=== PATIENT | male | born 1955 | race Caucasian/White ===

== ENCOUNTER → 2017-02-27 17:08 | Outpatient (CLI) | payer OTHER, SELFPAY ==
[2017-02-27 20:46] LABS: Prostate Specific Ag, Diagnost 6.05 ng/mL (0.0-4.0)
== END ==
PROVIDERS: PCP Family Medicine; Visit Provider Urology
DX: R97.20 Elevated prostate specific antigen [PSA] (principal); Z12.5 Encounter for screening for malignant neoplasm of prostate
CPT/HCPCS: 36415; 84153

== ENCOUNTER → 2017-03-18 10:52 | Outpatient (CLI) | payer OTHER, SELFPAY ==
[2017-03-18 12:44] LABS: Blood Urea Nitrogen 13 mg/dL (7-18); Creatinine,Serum 1.25 mg/dL (0.70-1.30); Estimated Glomerular Filt Rate 59 ml/min (>60); GFR (African American) 72 ML/MIN (>60)
== END ==
PROVIDERS: PCP Family Medicine; Visit Provider Family Medicine
DX: R39.89 Other symptoms and signs involving the genitourinary system (principal)
CPT/HCPCS: 36415; 82565; 84520

== ENCOUNTER → 2017-03-20 14:19 | Outpatient (CLI) | payer OTHER, SELFPAY ==
--- NOTE | 2017-03-20 14:36 | CT_ITS ---
CT chest wo con HISTORY: Left-sided lymphadenopathy, lung nodule, solitary pulmonary nodule ITS.REASON: PULMONARY NODULE ORDERING PHYSICIAN: Belle Rodríguez MD PATIENT AGE: 61 years TECHNIQUE: Axial images obtained. Sagittal and coronal reformatted images are also generated and reviewed. CONTRAST: None COMPARISON: None FINDINGS: No mediastinal or hilar mass or adenopathy is evident. Coronary artery calcifications are present. Normal heart size without evidence of pericardial effusion. There are stable bilateral noncalcified pulmonary nodules including a 5 mm nodule in the right upper lobe, 4 mm nodule in the right middle lobe, and 6 mm nodule in the lingula. No new nodules evident. There is a calcified granuloma in the right lung base. There are no effusions or infiltrates. No acute bony anomalies. Upper abdominal images are unremarkable. Small nodes are present in the axilla but no obvious adenopathy. IMPRESSION: 1. Stable bilateral pulmonary nodules. Consider 1 year follow-up. 2. No acute finding
--- NOTE | 2017-03-20 14:37 | CT_ITS ---
CT soft tissue neck w con INDICATION: Left-sided lymphadenopathy ITS.REASON: LYMPHADENOPATHY LT NECK ORDERING PHYSICIAN: Belle Rodríguez MD PATIENT AGE: 61 years COMPARISON: None TECHNIQUE: Axial images are obtained with 75 mL Isovue-370 contrast. Sagittal and coronal reformatted images are reviewed as well. FINDINGS: The nasopharynx has an unremarkable appearance. A BB is placed along the palpable abnormality in the left neck region. Deep to this area is an region of fat density within the posterior aspect of the left parotid gland which measures 17 x 13 mm consistent with a lipoma. There are scattered small lymph nodes in the neck but no dominant adenopathy. No abscess or abnormal fluid collection is evident. Upper thoracic images show no evidence of mediastinal adenopathy. No acute bony anomalies. Mild facet arthritic changes are present in the cervical spine. IMPRESSION: 1. No evidence of adenopathy. 2. 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
== END ==
PROVIDERS: Family Provider Family Medicine; PCP Family Medicine; Visit Provider Family Medicine
DX: R91.8 Other nonspecific abnormal finding of lung field (principal); R59.0 Localized enlarged lymph nodes
CPT/HCPCS: 70491; 71250; Q9967

== ENCOUNTER → 2017-06-09 17:19 | Outpatient (CLI) | payer OTHER, SELFPAY ==
[2017-06-09 18:06] LABS: Prostate Specific Ag Screen 7.2 ng/mL (0.0-4.0)
== END ==
PROVIDERS: Visit Provider Urology
DX: R97.20 Elevated prostate specific antigen [PSA] (principal)
CPT/HCPCS: 36415; G0103

== ENCOUNTER → 2018-09-28 17:01 | Outpatient (CLI) | payer BC, SELFPAY ==
[2018-09-30 17:19] LABS: PSA, Free 1.21 ng/mL; Prostate Specific Ag 7.9 ng/mL (0.0-4.0)
== END ==
PROVIDERS: Visit Provider Urology
DX: R97.20 Elevated prostate specific antigen [PSA] (principal)
CPT/HCPCS: 36415; 84153; 84154; G0103

== ENCOUNTER → 2018-11-05 17:11 | Outpatient (CLI) | payer BC, SELFPAY ==
[2018-11-07 16:44] LABS: PSA, Free 1.71 ng/mL; Prostate Specific Ag 7.7 ng/mL (0.0-4.0)
== END ==
PROVIDERS: Visit Provider Urology
DX: Z12.5 Encounter for screening for malignant neoplasm of prostate (principal); N40.0 Benign prostatic hyperplasia without lower urinary tract symptoms
CPT/HCPCS: 36415; 84153; 84154; G0103

== ENCOUNTER 2019-12-18 10:57 | Emergency (ER) | payer OTHER, SELFPAY ==
[2019-12-18 11:14] VITALS: BP 172/100; PULSE 62; RESP 16; TEMP 36.5; O2SAT 97; BMI 35.9
--- NOTE | 2019-12-18 11:17 | CT_ITS ---
PROCEDURE: CT ABDOMEN PELVIS WO CON CLINICAL INDICATION: right flank pain COMPARISON: CT ABDPELW/O CT ABD PELVIS W/O CONTRAST from 12/24/2016 TECHNIQUE: Axial images obtained with sagittal and coronal reformats. All CT scans at the facility use one or more dose reduction, viz: automated exposure control, ma/kV adjustment per patient size (including targeted exams where dose is matched to indication, i.e. head), or iterative reconstruction technique. FINDINGS: There is a stable 4 mm nodule in the right middle lobe. Coronary artery calcifications are present. Liver has an unremarkable appearance. There is mild splenomegaly at 15 cm. The adrenal glands and pancreas have an unremarkable appearance. The left kidney is unremarkable. There is a 2 mm stone at the right ureterovesical junction with mild right-sided hydronephrosis and hydroureter with mild stranding of the right perinephric and periureteral fat. There is a small umbilical hernia which contains fat. The prostate is enlarged at 7 cm. No intestinal obstruction or free air. There has been a prior appendectomy. There are mild degenerative changes of the spine and hips. IMPRESSION: Mild right hydronephrosis and hydroureter secondary to a 2 mm stone at the right ureterovesical junction with mild stranding of the right perinephric and periureteral fat. Other nonacute findings as described above the Dictated by: Newton Groves MD 12/18/2019 18:47 Newton Groves MD in [place] 12/18/2019 18:47
[2019-12-18 11:23] LABS: Microscopic, Urine URINE MICROSCOPIC (MICROSCOPIC)
[2019-12-18 11:25] LABS: Appearance,Urine CLEAR (Clear); Bilirubin,Urine Negative (Negative); Blood, Urine TRACE-I (Negative); Color,Urine YELLOW (Yellow); Glucose,Urine (UA) Negative (Negative); Ketones,Urine Negative (Negative); Leukocyte Esterase,Urine Negative (Negative); Nitrate,Urine Negative (Negative); PH,Urine 8.5 (5.0-8.5); Protein,Urine TRACE (Negative); Urobilinogen,Urine 0.2 EU/dl (0.2)
[2019-12-18 11:25] LABS: Basophils # 0.1 K/mm3 (0-0.2); Basophils % 1.1 % (0.1-2.0); Eosinophils # 0.1 K/mm3 (0.0-0.4); Eosinophils % 2.1 % (0.1-12.0); Hematocrit 46.3 % (42.0-52.0); Hemoglobin 15.2 g/dL (14.1-18.0); Lymphocytes # 1.1 K/mm3 (0.7-4.5); Lymphocytes % 16.8 % (10-50); Mean Corpuscular HGB Conc 32.9 g/dL (31.8-35.4); Mean Corpuscular Hemoglobin 29.3 pg (27.0-31.2); Mean Corpuscular Volume 88.8 fl (80-94); Mean Platelet Volume 8.2 fl (7.4-10.4); Monocytes # 0.3 K/mm3 (0.1-1.0); Platelet Count 344 K/mm3 (142-424); Red Blood Count 5.21 M/mm3 (4.60-6.20); Red Cell Distribution Width 12.7 % (11.5-17.5); White Blood Count 6.5 K/mm3 (4.8-10.8)
[2019-12-18 11:26] LABS: Chloride 104 mmol/L (98-107); Sodium 139 mmol/L (136-145)
[2019-12-18 11:28] VITALS: BP 151/84; PULSE 62; RESP 20; O2SAT 100
[2019-12-18 11:28] LABS: Amylase 150 U/L (30-110)
[2019-12-18 11:29] LABS: Alanine Aminotransferase 38 U/L (12-78); Albumin Level 4.9 g/dl (3.5-5.0); Albumin/Globulin Ratio 1.5 (1.1-1.8); Alkaline Phosphatase 74 U/L (38-126); Aspartate Amino Transferase 34 U/L (17-59); Bilirubin,Total 1.1 mg/dl (0.2-1.3); Blood Urea Nitrogen 16 mg/dl (9-20); Calcium 10.3 mg/dl (8.4-10.2); Carbon Dioxide 20 mmol/L (22.0-30.0); Creatinine Clearance Estimated 102 mL/min (50-200); Estimated Glomerular Filt Rate 61 ml/min (>60); GFR (African American) 74 ML/MIN (>60); Globulin 3.3 g/dL (1.3-3.2); Glucose 140 mg/dl (74-100); Lipase 354 U/L (23-300); Total Protein,Serum 8.2 g/dl (6.3-8.2)
--- NOTE | 2019-12-18 11:41 | HMH.EDGENADL ---
ED Disposition Clinical Impression: Right ureteral calculus Disposition: Home, Self-Care Condition on Discharge: Fair Instructions: DI for Kidney Stones Additional Instructions: Additional instructions for KIDNEY STONE (URETERAL CALCULUS): See Dr. Paredes as soon as possible for further evaluation, call for appointment. Drink plenty of fluids. Strain your urine and save any stones you catch. Return immediately if you develop a fever or have uncontrollable vomiting or uncontrollable pain. Additional instructions for CONTROLLED SUBSTANCES: You have been prescribed a medication that is a controlled substance. Controlled substances include pain medications known as opiates and sedative nerve medications known as benzodiazepines. Tramadol, fioricet, and gabapentin are also controlled substances. Some common opiates include: Codeine (such as Tylenol #3) Hydrocodone (Vicodin, Lortab, Lorcet, Biggers) Oxycodone (Percocet, Percodan, Oxycodone, Oxy IR) Some common benzodiazepines include: Diazepam (Valium) Lorazepam (Ativan) Alprazolam (Xanax) Clonazepam (Klonopin) Oxazepam (Serax) All of these controlled substances are highly addictive and frequently abused. Misuse can and frequently does lead to addiction as well as overdose and . Medication should be stored in a locked cabinet or other secure storage unit. Do not store the medication in a motor vehicle. Short term supplies, 3 days or less, are prescribed because of the highly addictive nature of the medication. Any of the controlled substance medication NOT taken should be disposed of properly and NOT SAVED. The recommended method of disposing of unused medications is: Place the medicines in a sealable plastic bag. If the medicine is a solid, crush it or add water to dissolve it. Add something undesirable (cat litter, coffee grounds, etc.) Dispose of sealed bag in household trash Do not flush or pour unused medicines down a sink or drain. Controlled substances should not be shared, given away or sold. Because of the addictive nature and frequent abuse, these medications are sometimes stolen. These medications should be kept in a safe place where they cannot be stolen. Do not keep them in your car or purse. Lost or stolen prescriptions for controlled substances WILL NOT BE REFILLED in this emergency department, regardless of whether a police report was filed. Prescriptions: Oxycodone HCl/Acetaminophen [Percocet 5/325mg tablet] 1 tab PO Q6HP PRN #10 tab PRN Reason: Moderate To Severe Pain Transmission Status: Sent to [facility] Tamsulosin HCl [Flomax 0.4mg capsule] 0.4 mg PO HS #10 cap.er.24h Transmission Status: Pending to [facility] Ondansetron [Zofran 4mg ODT] 4 mg PO TIDP PRN #10 tab.rapdis PRN Reason: Nausea And Vomiting Transmission Status: Pending to [facility] Referrals: Belle Rodríguez MD [Primary Care Provider] - Lefty Paredes MD [Staff Physician] - - Critical Care Critical Care Time: No Attestation: On 12/18/19, the high probability of a clinically significant, sudden or life threatening deterioration of the following system(s) required my full and direct attention, intervention and personal management. The time I documented below is in addition to time spent performing reported procedures but includes the following listed in this critical care notation. Medical Decision Making - Omid Inquiry Pt receiving controlled substance: Yes Omid was queried for this patient: Yes Reference #:: [id number] Risks and benefits of using a controlled substance: were discussed with pt by me Comment: 0 rxs. Vital Signs: 12/18/19 11:14 12/18/19 11:28 Temperature 97.7 F Temperature Source Oral Pulse Rate [Right Radial] 62 62 Respiratory Rate 16 20 Blood Pressure [Right Arm] 172/100 H 151/84 H Blood Pressure Mean [Right Arm] 124 106 Blood Pressure Source [Right Arm] Automatic Cuff Blood Pre
[2019-12-18 11:47] LABS: RBC,Urine Occasional #/hpf (0-3); Squamous Epithelial Cell,Urine Occasional #/hpf (0-5)
[2019-12-18 13:36] VITALS: BP 135/81; PULSE 78; RESP 16; TEMP 37.2; O2SAT 99
== END 2019-12-18 13:36 | disposition home or self-care (01) ==
PROVIDERS: Emergency Provider Emergency Medicine; PCP Family Medicine
DX: N20.1 Calculus of ureter (principal); I10 Essential (primary) hypertension; Z87.891 Personal history of nicotine dependence; Z79.899 Other long term (current) drug therapy
CPT/HCPCS: 74176; 80053; 81001; 82150; 83690; 85025; 96365; 96375; 96376; 99283; J2405

== ENCOUNTER → 2020-01-28 10:38 | Outpatient (CLI) | payer OTHER, SELFPAY ==
--- NOTE | 2020-01-28 | XR_ITS ---
PROCEDURE: XR KNEE RT 3V CLINICAL INDICATION: RT KNEE PAIN COMPARISON: No exams were available for comparison FINDINGS: No fracture or dislocation. No lytic or blastic change. There is normal mineralization. Osteoarthritic changes are present involving all 3 compartments greatest at the medial compartment. Chondrocalcinosis is present laterally. Other findings:None. IMPRESSION: Osteoarthritis with chondrocalcinosis Dictated by: Newton Groves MD 01/28/2020 16:24 Newton Groves MD in [place] 01/28/2020 16:24
--- NOTE | 2020-01-28 | XR_ITS ---
PROCEDURE: XR KNEE LT 3V CLINICAL INDICATION: LT KNEE PAIN COMPARISON: No exams were available for comparison FINDINGS: No fracture or dislocation. No lytic or blastic change. There is normal mineralization. There are moderate osteoarthritic changes of the medial compartment and patellofemoral joint with mild osteoarthritis of the lateral compartment and chondrocalcinosis noted laterally. Other findings:None. IMPRESSION: Osteoarthritis Dictated by: Newton Groves MD 01/28/2020 16:28 Newton Groves MD in [place] 01/28/2020 16:28
--- NOTE | 2020-01-28 | XR_ITS ---
PROCEDURE: XR HAND RT MIN 3V CLINICAL INDICATION: POLYARTHRAGIA COMPARISON: No exams were available for comparison FINDINGS: No fracture or dislocation. No lytic or blastic change. There is normal mineralization. The joint spaces are well-preserved. No significant degenerative/arthritic changes. No erosive changes evident. Other findings:None. IMPRESSION: Negative right hand Dictated by: Newton Groves MD 01/28/2020 16:29 Newton Groves MD in [place] 01/28/2020 16:29
--- NOTE | 2020-01-28 | XR_ITS ---
PROCEDURE: XR HAND LT MIN 3V CLINICAL INDICATION: POLYARTHRAGIA COMPARISON: No exams were available for comparison FINDINGS: No fracture or dislocation. No lytic or blastic change. There is normal mineralization. The joint spaces are well-preserved. No significant degenerative/arthritic changes. No erosive changes evident. Other findings:None. IMPRESSION: No acute findings. Dictated by: Newton Groves MD 01/28/2020 16:29 Newton Groves MD in [place] 01/28/2020 16:29
== END ==
PROVIDERS: PCP Family Medicine; Visit Provider Family Medicine
DX: M25.50 Pain in unspecified joint (principal); M79.642 Pain in left hand; M79.641 Pain in right hand; M25.562 Pain in left knee; M25.561 Pain in right knee
CPT/HCPCS: 73130; 73562

== ENCOUNTER → 2020-07-24 16:17 | Outpatient (CLI) | payer OTHER, SELFPAY ==
--- NOTE | 2020-07-24 16:23 | XR_ITS ---
PROCEDURE: XR CLAVICLE RT CLINICAL INDICATION: Primary osteoarthritis, unspecified shoulder COMPARISON: No exams were available for comparison FINDINGS: Views of the right clavicle show extensive hypertrophic degenerative change of the acromioclavicular and glenohumeral joints with small subacromial spur and multiple subchondral cysts in the humeral head. No acute fracture or dislocation. Visualized right upper lung field is normal. IMPRESSION: Extensive hypertrophic degenerative changes of the right shoulder joint as described above with multiple subchondral cysts in the humeral head. Dictated by: Everette Sanabria MD 07/24/2020 16:41 Everette Sanabria MD in [place] 07/24/2020 16:41
== END ==
PROVIDERS: PCP Family Medicine; Visit Provider Family Medicine
DX: M19.019 Primary osteoarthritis, unspecified shoulder (principal)
CPT/HCPCS: 73000

== ENCOUNTER → 2021-02-12 13:04 | Outpatient (CLI) | payer OTHER, SELFPAY ==
[2021-02-13 08:20] LABS: PSA, Free 1.12 ng/mL
== END ==
PROVIDERS: Visit Provider Urology
DX: R97.20 Elevated prostate specific antigen [PSA] (principal)
CPT/HCPCS: 36415; 84153; 84154

== ENCOUNTER → 2021-07-22 15:12 | Outpatient (CLI) | payer OTHER, SELFPAY | PROVIDERS: PCP Physician Assistant; Visit Provider Physician Assistant | DX: U07.1 COVID-19 (principal) | CPT/HCPCS: C9803; U0003; U0005 ==

== ENCOUNTER → 2021-12-03 11:23 | Outpatient (CLI) | payer OTHER, SELFPAY ==
[2021-12-03 11:56] LABS: Basophils # 0.1 K/mm3 (0-0.2); Basophils % 2.5 % (0.1-2.0); Eosinophils # 0.1 K/mm3 (0.0-0.4); Hematocrit 47.2 % (42.0-52.0); Hemoglobin 15.6 g/dL (14.1-18.0); Mean Corpuscular HGB Conc 33.1 g/dL (31.8-35.4); Mean Corpuscular Hemoglobin 30.3 pg (27.0-31.2); Mean Corpuscular Volume 91.6 fl (80-94); Monocytes # 0.5 K/mm3 (0.1-1.0); Monocytes % 11.2 % (1.7-9.3); Neutrophils # 2.5 K/mm3 (1.8-7.8); Neutrophils % 60.3 % (37.0-80.0); Platelet Count 279 K/mm3 (142-424); Red Blood Count 5.15 M/mm3 (4.60-6.20); Red Cell Distribution Width 13.3 % (11.5-17.5); White Blood Count 4.2 K/mm3 (4.8-10.8)
== END ==
PROVIDERS: PCP Family Medicine; Visit Provider Family Medicine
DX: Z20.822 Contact with and (suspected) exposure to COVID-19 (principal); J09.X2 Influenza due to identified novel influenza A virus with other respiratory manifestations
CPT/HCPCS: 36415; 85025; 87275; 87276; C9803; U0003; U0005

== ENCOUNTER → 2022-08-03 10:30 | Outpatient (CLI) | payer OTHER, SELFPAY ==
--- NOTE | 2022-08-03 10:38 | XR_ITS ---
FINAL REPORT CLINICAL HISTORY: LT SHOULDER PAIN COMPARISON: None FINDINGS: LEFT SHOULDER Two views demonstrate no acute fracture or dislocation. There are moderate and severe degenerative changes. Multiple loose bodies are noted in the axial recess. There is glenohumeral joint degenerative change. The visualized bony structures are well aligned. IMPRESSION: No acute process. Reviewed, Interpreted and Dictated by Godwin Bianchi III, MD Transcribed by Xiao Renee Authenticated and [facility]
== END ==
PROVIDERS: PCP Family Medicine; Visit Provider Family Medicine
DX: M25.512 Pain in left shoulder (principal)
CPT/HCPCS: 73030

== ENCOUNTER 2023-04-10 10:40 | Outpatient (CLI) | payer MEDICARE, SELFPAY ==
[2023-04-10 11:34] LABS: Blood Urea Nitrogen 14 mg/dl (9-20); Estimated Glomerular Filt Rate 67 ml/min (>60); GFR (African American) 81 ML/MIN (>60)
[2023-04-11 09:18] LABS: Prostate Specific Ag 6.7 ng/mL (0.0-4.0)
== END 2023-04-10 23:59 ==
LOC: LAB 10:41
PROVIDERS: PCP Family Medicine; Visit Provider Urology
DX: R97.20 Elevated prostate specific antigen [PSA] (principal)
CPT/HCPCS: 36415; 82565; 84153; 84154; 84520

== ENCOUNTER 2023-06-22 08:36 | Outpatient (CLI) | payer MEDICARE, SELFPAY ==
--- NOTE | 2023-06-22 08:40 | MR_ITS ---
FINAL REPORT CLINICAL HISTORY: PRIMARY OSTEOARTHRITIS OF RIGHT SHOULDER kelley in shoulder FINDINGS: Multiplanar MR imaging of the right shoulder was performed without contrast. There are complete tears of the distal supraspinatus and infraspinatus tendons. Tendons are retracted to the medial humeral head. There is mild supraspinatus and infraspinatus muscle atrophy. There is mild AC joint arthrosis. There is superior subluxation of the humerus with severe subacromial space narrowing. Moderate fluid is seen in the subacromial/subdeltoid bursa. There is moderate glenohumeral degenerative change. The long head of the biceps tendon is not seen, likely torn. The glenoid labrum is intact. Moderate glenohumeral joint effusion is seen. There is no evidence of fracture or dislocation. There is no evidence of soft tissue mass. IMPRESSION: Complete tears of the supraspinatus and infraspinatus tendon with mild muscle atrophy. Degenerative changes as detailed above. Likely tear of the long head of the biceps tendon. Reviewed, Interpreted and Dictated by Godwin Bianchi III, MD Transcribed by Donna Yadav Authenticated and [facility]
== END 2023-06-22 23:59 | disposition home or self-care (01) ==
LOC: RAD 08:37
PROVIDERS: PCP Family Medicine; Visit Provider Family Medicine
DX: M19.011 Primary osteoarthritis, right shoulder (principal)
CPT/HCPCS: 73221

== ENCOUNTER 2023-09-04 11:00 | Outpatient (RCR) | payer MEDICARE, SELFPAY | END 2023-09-04 11:05 | disposition home or self-care (01) | LOC: OT 11:00 | PROVIDERS: Visit Provider Orthopaedic Surgery | DX: Z98.890 Other specified postprocedural states (principal); M25.511 Pain in right shoulder | CPT/HCPCS: 97010; 97014; 97110; 97140; 97165; 97530; G0283 ==

== ENCOUNTER 2023-11-27 13:40 | Outpatient (CLI) | payer MEDICARE, SELFPAY ==
[2023-11-28 11:15] LABS: PSA, Free 1.28 ng/mL; Prostate Specific Ag 5.4 ng/mL (0.0-4.0)
== END 2023-11-27 23:59 | disposition home or self-care (01) ==
LOC: LAB 13:42
PROVIDERS: PCP Family Medicine; Visit Provider Urology
DX: Z12.5 Encounter for screening for malignant neoplasm of prostate (principal); R97.20 Elevated prostate specific antigen [PSA]
CPT/HCPCS: 36415; 84153; 84154

== ENCOUNTER 2024-02-26 09:09 | Outpatient (CLI) | payer BC, SELFPAY ==
[2024-02-27 08:25] LABS: PSA, Free 1.29 ng/mL
== END 2024-02-26 23:59 | disposition home or self-care (01) ==
LOC: LAB 09:12
PROVIDERS: PCP Internal Medicine; Visit Provider Urology
DX: N40.0 Benign prostatic hyperplasia without lower urinary tract symptoms (principal)
CPT/HCPCS: 36415; 84153; 84154

== ENCOUNTER 2024-05-24 11:41 | Outpatient (CLI) | payer MEDICARE, SELFPAY ==
--- NOTE | 2024-05-24 11:45 | XR_ITS ---
FINAL REPORT CLINICAL HISTORY: ACUTE COUGH FINDINGS: CHEST 2 VIEWS PA AND LATERAL The heart is normal in size. The mediastinum is unremarkable. The lungs are clear. There is no pneumothorax. IMPRESSION: No acute process. Reviewed, Interpreted and Dictated by Brady Chino MD Transcribed by Donna Yadav Authenticated and [facility]
== END 2024-05-24 23:59 | disposition home or self-care (01) ==
LOC: RAD 11:42
PROVIDERS: PCP Family Medicine; Visit Provider Family Medicine
DX: R05.1 Acute cough (principal)
CPT/HCPCS: 71046

== ENCOUNTER 2024-05-27 08:32 | Outpatient (CLI) | payer MEDICARE, SELFPAY ==
--- NOTE | 2024-05-27 08:35 | CT_ITS ---
FINAL REPORT TECHNIQUE: Thin section axial images were obtained through the lungs using a low-dose technique per lung cancer screening protocol. Reconstruction images were obtained using the axial data. Exam was performed using dose reduction technique. This study was performed with techniques to keep radiation doses as low as reasonably achievable (ALARA). Individualized dose reduction techniques using automated exposure control or adjustment of mA and/or kV according to the patient's size were employed. CLINICAL HISTORY: hx smoker, 1ppd for 30 years, quit 10 years ago COMPARISON: None FINDINGS: CTDLvol: 2.90 DLP: 106.29 Former, who quit 10 years ago smoker 30 pack year history Lungs: No acute pulmonary abnormality. There is a 4 mm left subpleural nodule best seen on image #11 of series 4. There is a lingular nodule, measuring 5 mm in size, best seen on image #47 of series 4. There is a 6 mm nodule also present in the lingula, best seen on image #53 of series 4. There are several lung nodules in the right lung, that measure 4 mm or less in size. Lymph nodes: No thoracic lymphadenopathy. Mediastinum: Heart size is normal. Pleura/pericardium: No pleural or pericardial effusion. Other: No acute abnormality in the upper abdomen. IMPRESSION: Bilateral noncalcified pulmonary nodules as described. Lung RADS: 3 Recommendation: 6-month follow-up CT of the chest. Reviewed, Interpreted and Dictated by Mya Thacker MD Transcribed by Luz Montano Authenticated and [facility]
== END 2024-05-27 23:59 | disposition home or self-care (01) ==
LOC: RAD 08:32
PROVIDERS: PCP Family Medicine; Visit Provider Family Medicine
DX: R91.8 Other nonspecific abnormal finding of lung field (principal); Z87.891 Personal history of nicotine dependence
CPT/HCPCS: 71271

== ENCOUNTER 2024-07-17 07:36 | Day surgery (SDC) | payer MEDICARE, SELFPAY ==
[2024-07-16 13:44] VITALS: BMI 37.3
[2024-07-17 08:06] VITALS: BP 142/84; PULSE 60; RESP 16; TEMP 36.1; O2SAT 97
[2024-07-17] MEDS: LACTATED RINGERS 1000ML 1,000 ML 50 ML IV (08:13)
--- NOTE | 2024-07-17 08:45 | EXP.HP ---
History of Present Illness *Admission Date: 07/17/24 *Reason for visit:: Positive Cologuard *History of present illness: Mr. Ray is a 68-year-old gentleman who is here for screening colonoscopy secondary to a positive Cologuard. The examination is deemed medically necessary for screening colonoscopy. The patient has been seen, interviewed and examined prior to the procedure by both myself and the anesthesia provider. [facility] Disclaimer: The information contained in this section may have been updated after the patient was seen, as this information can be updated by other users. Medical History (Updated 07/17/24 @ 08:56 by Faheem Nettles II, MD) Sleep apnea History of COVID-19 Hyperlipidemia Hypertension Enlarged prostate Surgical History History of cholecystectomy History of back surgery History of appendectomy History of colonoscopy Family History Other Brain tumor Cancer Diabetes Leukemia Lung cancer Social History Smoking Status: Former smoker tobacco type: cigarettes and smokeless tobacco alcohol intake: current alcohol intake frequency: a few times a month substance use type: denies use current occupational status: retired Travel in the last 8 weeks?: None household members: spouse housing: house Have you lived/traveled outside US in past 30 days?: No Contact w/someone who lives/traveled outside US past 30 days?: No Exposure to someone with infectious disease in past 14 days?: No Do you have a fever (greater than 100.4 F or 38 C)?: No Have you tested positive for COVID-19?: No Exposed to someone with COVID-19 in past 14 days?: No Do you have a sore throat?: No Do you have a cough?: No Do you have any weakness?: No Do you have any diarrhea?: No Are you experiencing any unusual bleeding?: No Do you have any muscle aches/pain?: No Do you have any abdominal pain?: No Are you experiencing loss of taste or smell?: No Other Medical History Have you received the Flu Vaccine for this season: No Have you received the Pneumonia Vaccine: No Review of Systems Review of Systems Review of systems (narrative): Negative *Cardiovascular Comments: Negative *Gastrointestinal Comments: Negative *Genitourinary Comments: Negative *Musculoskeletal Comments: Negative *Neurologic Comments: Negative Meds Home Medications and Allergies Home Medications ?Medication ?Instructions ?Recorded ?Confirmed ?Type icosapent ethyl 1 gram capsule 2 g PO BID 04/10/23 07/17/24 History (Vascepa) metoprolol succinate 50 mg 50 mg PO DAILY 04/10/23 07/17/24 History tablet,extended release 24 hr losartan 25 mg tablet 25 mg PO DAILY 11/27/23 07/17/24 History rosuvastatin 10 mg tablet 10 mg PO DAILY 11/27/23 07/17/24 History tadalafil 5 mg tablet (Cialis) 5 mg PO DAILY #90 tabs 06/17/24 07/17/24 Rx fexofenadine 180 mg tablet 180 mg PO DAILY 07/16/24 07/17/24 History melatonin 10 mg tablet 10 mg PO HS PRN Sleep 07/16/24 07/17/24 History meloxicam 15 mg tablet 15 mg PO DAILY 07/16/24 07/17/24 History New Prescriptions to Start Prescriptions: Allergies Allergy/AdvReac Type Severity Reaction Status Date / Time cobalt (COBALT) Allergy Unknown Unknown Verified 07/16/24 13:27 allergy reaction cocamidopropyl betaine Allergy Unknown Blister Verified 07/16/24 13:27 (COCAMIDOPROPYL BETAINE) RUBBER Allergy Unknown Unknown Uncoded 07/16/24 13:27 allergy reaction Exam Data for Last 24 hours Vital signs and Labs for Last 24 Hours: Temp Pulse Resp BP Pulse Ox O2 Del Method 97 F L 60 16 142/84 H 97 Room Air 07/17/24 08:06 07/17/24 08:06 07/17/24 08:06 07/17/24 08:06 07/17/24 08:06 07/17/24 08:06 I & O for Last 24 hours: Intake & Output 07/14/24 07/15/24 07/16/24 07/17/24 23:59 23:59 23:59 23:59 Weight 268 lb *Routine HEENT Exam Head: Present normocephalic Eye: Present EOMI and PERRL ENT: Present mucous membranes moist *Routine Neck Exam Neck: Present supple *Routine Respiratory Exam Respiratory: Present CTA bilaterally *Routine Cardiovascular Exam Cardiovascular: Present RRR *Routine Abdominal Exam Abdominal: Present soft and normoactive bowel sounds; Absent tenderness *Routine Rectal Exam Rectal:: deferred *Routine Genitalia Exam Genitalia:: deferred *Routine Extremities Exam Extremities: Absent cyanosis, clubbing or edema *Routine Skin Exam Skin: Present warm; Absent rash *Routine Neurological Exam Neurological: Present alert and oriented X3 Assessment and Plan *Assessment and plan (1) Positive colorectal cancer screening using Cologuard test: Status: Acute Category: Medical Code(s): R19.5 - Other fecal abnormalities Plan A/P: 1. Positive Cologuard is the preprocedural diagnosis. The patient will be anesthetized/sedated using MAC sedation. The patient has been seen and examined. Cardiac and lung assessment prior to the examination is stable. Proceed with planned screening colonoscopy.
--- NOTE | 2024-07-17 08:57 | HMH.PROCNOTE ---
[facility] Procedure Note Date: 07/17/24 Time: 09:19 Procedure Note:: Colonoscopy Procedure Report: Colonoscopy with cold snare polypectomy Endoscopist: Faheem Nettles II, MD Referring physician: Ivan Rodríguez MD Date of Procedure: July 17, 2024 Equipment: Olympus 190 variable stiffness pediatric colonoscope Sedation: MAC sedation Indication: Mr. Ray is a 68-year-old gentleman who is here for screening colonoscopy secondary to a positive Cologuard test. The patient reports no abdominal pain, weight loss, change in his bowel habits or rectal bleeding. He reports no family history of colon cancer. He did have some diarrhea about a month ago that resolved. He does state that his last colonoscopy was approximately 8 years ago and he had 3 polyps removed. Procedure: Prior to the procedure, a history and physical exam was performed, and patient's medications and allergies were reviewed. The risks, benefits and alternatives of the sedation and procedure were discussed with the patient. All questions were answered and informed consent was obtained. The patient was brought to the procedure room. Patient identification and proposed procedure were verified by the physician and the nurse. The patient was placed in a left lateral decubitus position and the scope was passed under direct vision. Throughout the procedure, the patient's blood pressure, pulse, and oxygen saturations were monitored continuously. The colonoscopy was accomplished without difficulty. The patient tolerated the procedure well. Findings: On digital rectal examination there was normal rectal tone. There were no external hemorrhoids. The colonoscope was introduced through the anal canal to the rectum and advanced to the cecum. The ileocecal valve and appendiceal orifice were identified. The scope was advanced a short distance into the ileum which appeared grossly normal. The scope was then withdrawn into the colon. There were 7 diminutive polyps (cecum x 1 (4 mm), transverse x 2 (3 and 5 mm), descending x 3 (2, 3 and 3 mm) and sigmoid x 1 (5 mm)). These were all removed via cold snare polypectomy. The remaining cecum, ascending and transverse colon and mucosa were grossly normal. There were scattered diverticuli throughout the descending and sigmoid colon (LEFT colon). The rectum itself was normal. Upon retroflexion within the rectum there were grade 2 internal hemorrhoids. The preparation was excellent throughout with Davenport Preparation Score of 9. The cecal time was 14 minutes. Impression: 1. Diminutive colonic polyps x 7 2. Mild left-sided diverticulosis 3. Grade 2 internal hemorrhoids Plan: I will follow-up the polyp histology and recommend repeat surveillance colonoscopy again in 3 to 5 years based upon the pathology. I would encourage psyllium bulking fiber supplementation on a maintenance basis.
[2024-07-17 09:24] VITALS: BP 106/75; PULSE 65; RESP 18; TEMP 36.7; O2SAT 94
[2024-07-17 09:34] VITALS: BP 112/64; PULSE 60; RESP 16; O2SAT 94
--- NOTE | 2024-07-17 09:42 | EXP.ANES.CKL ---
[facility] Disclaimer: The information contained in this section may have been updated after the patient was seen, as this information can be updated by other users. Medical History (Updated 07/17/24 @ 08:56 by Faheem Nettles II, MD) Sleep apnea History of COVID-19 Hyperlipidemia Hypertension Enlarged prostate Surgical History History of cholecystectomy History of back surgery History of appendectomy History of colonoscopy Family History Other Brain tumor Cancer Diabetes Leukemia Lung cancer Social History Smoking Status: Former smoker tobacco type: cigarettes and smokeless tobacco alcohol intake: current alcohol intake frequency: a few times a month substance use type: denies use current occupational status: retired Travel in the last 8 weeks?: None household members: spouse housing: house Have you lived/traveled outside US in past 30 days?: No Contact w/someone who lives/traveled outside US past 30 days?: No Exposure to someone with infectious disease in past 14 days?: No Do you have a fever (greater than 100.4 F or 38 C)?: No Have you tested positive for COVID-19?: No Exposed to someone with COVID-19 in past 14 days?: No Do you have a sore throat?: No Do you have a cough?: No Do you have any weakness?: No Do you have any diarrhea?: No Are you experiencing any unusual bleeding?: No Do you have any muscle aches/pain?: No Do you have any abdominal pain?: No Are you experiencing loss of taste or smell?: No [facility] Anesthesia Checklist Patient Identification Patient Identification: Verbal (Name & ) Structural Data Admitted From: Home Planned Operative Procedure/s: colonoscopy Consent for Planned Operative Procedure(s) Verified: Yes NPO Status Verified Time NPO: 00:00 Airway Assessment Mallampati Score:: Class II C-Spine Mobility Assessed: Yes TMJ Mobility Assessed: Yes Dentition: Poor Dentition Neurological Assessment Level of Consciousness: Awake, Alert and Appropriate Anesthesia Plan Anesthesia Risk discussed: Yes Anesthesia Plan: Verified ASA Class: II Anesthesia Type: MAC
[2024-07-17 09:44] VITALS: BP 105/62; PULSE 58; RESP 18; O2SAT 95
[2024-07-17 09:54] VITALS: BP 119/61; PULSE 61; RESP 18; O2SAT 97
[2024-07-17 10:15] VITALS: BP 97/64; PULSE 52; RESP 18; TEMP 36.7; O2SAT 98
== END 2024-07-17 10:15 | disposition home or self-care (01) ==
PROVIDERS: PCP Family Medicine; Visit Provider Internal Medicine Gastroenterology
PROC: 0DJD8ZZ Inspection of Lower Intestinal Tract, Via Natural or Artificial Opening Endoscopic (ICD-10-PCS; CPT 45378; principal; 2024-07-17 09:00)
DX: Z12.11 Encounter for screening for malignant neoplasm of colon (principal); Z86.0100 Personal history of colon polyps, unspecified; D12.4 Benign neoplasm of descending colon; D12.5 Benign neoplasm of sigmoid colon; D12.3 Benign neoplasm of transverse colon; K63.5 Polyp of colon; K57.30 Diverticulosis of large intestine without perforation or abscess without bleeding; K64.1 Second degree hemorrhoids; R19.5 Other fecal abnormalities; G47.30 Sleep apnea, unspecified; E78.5 Hyperlipidemia, unspecified; I10 Essential (primary) hypertension; N40.0 Benign prostatic hyperplasia without lower urinary tract symptoms; Z90.49 Acquired absence of other specified parts of digestive tract; Z87.891 Personal history of nicotine dependence; Z79.899 Other long term (current) drug therapy; Z79.1 Long term (current) use of non-steroidal anti-inflammatories (NSAID); Z91.09 Other allergy status, other than to drugs and biological substances
CPT/HCPCS: 45385; J2003; J2704; J7120